=== PATIENT | male | born 1945 | race Caucasian/White ===

== ENCOUNTER → 2016-05-14 | Outpatient (CLI) | payer MEDICARE, OTHER ==
[2016-05-14 12:58] VITALS: BP 132/80; PULSE 85; RESP 16; TEMP 97.8
--- NOTE | 2016-05-14 13:45 | P.PN ---
Subjective This is follow-up visit for this patient with a history of severe and chronic low back pain secondary to lumbar degenerative disc disease, lumbar facet arthropathy, we have done interventional pain management injection, lumbar epidural steroid injection 3, and is currently on pain medications 1-naproxen to 20 mg twice a day when necessary, patient felt excellent pain relief until 2 days ago, he started feeling low back pain with radiation to the posterior aspect of his legs Patient denies any side effects of the medication, denies excessive drowsiness or sleepiness, denies suicidal ideation, and reports that the current pain medication is NOT helping To control the pain and improve activity of daily living Physical Examinations : 1-Constitutiona : Cooperative , not in acute distress . 2-HEENT : nech ; supple , no Lymphadenopathy , no Thyromegaly , normal thyroid size . eyes : no ptosis , no icterus, no photophobia . ENT : normal of hearing , normal oropharynx , no Thrush . 3- Respiratory : Chest clear to auscultations Bilaterally , no wheezing , no Rhonchi . 4- Cardiovascular : regular rate and rhythem , S1 , S2 , no S3 , no S4. 5- Gastrointestinal : abdomen soft no tenderness , bowel sounds positive all four quadrents , no organomegally . 6- Genitourinary : Defferred . 7- neurologic : Cranial nerve II to XII intact , no focal neurological deffecit . 8-psychatric : alert , oriented X 3 , appropriate affect , intact judgment and insight . 9-Lymphatic : no Lymphadenopathy . 10- musculoskeltal : exams of the Lumber spine = motor strength lower extremities ,thigh and legs .5/5 deep tendon reflexes : normal Knee Jerk , normal ankle Jerk . lumber facet Loading Test positive strait leg raising test = negative bilaterally, Fabere test= negative bilaterally Range of motion: Range of motion in flexion of the lumbar spine 90 degrees Range of motion range of motion of extension of the lumbar spine 10 Assessment and plan = - Chronic low back pain secondary to lumbar degenerative disc disease , lumbar spondylosis with facet arthropathy without myelopathy , status post lumbar epidural steroid injections 3 - diagnoses, prognosis, and treatment options including but not limited to physical therapy, surgical interventions, interventional therapies and medication management including narcotics and adjuvant medication were discussed with the patient and all questions answered to the patient's satisfaction. -medication refile = start patient on Neurontin 100 mg 3 times a day, start patient on Ultram 50 mg half a tablet every 6 hours when necessary for breakthrough pain, we'll see the patient in the clinic in 4-6 weeks if he continues to have pain then will consider doing diagnostic medial branch block lumbar area and possibly radiofrequency ablation of the medial branch lumbar area Objective - Vital Signs Vital signs: Vital Signs Temp 97.8 F 05/14/16 12:49 Pulse 85 05/14/16 12:49 Resp 16 05/14/16 12:49 BP 132/80 05/14/16 12:49 Pulse Ox 95 05/14/16 12:49 Intake & Output 05/13/16 05/14/16 05/14/16 18:59 06:59 18:59 Weight 77.111 kg
== END | disposition home or self-care (01) ==
LOC: PNWHC3 11:37
PROVIDERS: ATTEND Specialist
DX: M51.36 Other intervertebral disc degeneration, lumbar region (principal); M47.816 Spondylosis without myelopathy or radiculopathy, lumbar region; M46.96 Unspecified inflammatory spondylopathy, lumbar region; Z79.899 Other long term (current) drug therapy
CPT/HCPCS: 99211

== ENCOUNTER → 2016-06-18 | Outpatient (CLI) | payer MEDICARE, OTHER ==
[2016-06-18 14:17] VITALS: BP 105/61; PULSE 94; RESP 16; TEMP 98.2
--- NOTE | 2016-06-18 14:52 | P.PN ---
Subjective This is follow-up visit for this patient with a history of chronic low back pain with radiation to the lower extremities secondary to lumbar degenerative Disc disease, lumbar spinal stenosis at L5-S1 and L4 5, we have done interventional pain management injection, lumbar epidural steroid injections, x3 , and patient reported he had no benefit from the injections, he reports whenever he does any physical activity, he feels that his lower extremities extremely weak, feels some pain in the thighs and the calf area , and muscle spasm in the lower extremities, he was on Neurontin but it caused some skin rash and he stopped taking it, he is currently on Ultram and he had minimal or no benefit from it, denies any change in the bowel movement or urination Physical Examinations : 1-Constitutiona : Cooperative , not in acute distress . 2-HEENT : nech ; supple , no Lymphadenopathy , no Thyromegaly , normal thyroid size . eyes : no ptosis , no icterus, no photophobia . ENT : normal of hearing , normal oropharynx , no Thrush . 3- Respiratory : Chest clear to auscultations Bilaterally , no wheezing , no Rhonchi . 4- Cardiovascular : regular rate and rhythem , S1 , S2 , no S3 , no S4. 5- Gastrointestinal : abdomen soft no tenderness , bowel sounds positive all four quadrents , no organomegally . 6- Genitourinary : Defferred . 7- neurologic : Cranial nerve II to XII intact , no focal neurological deffecit . 8-psychatric : alert , oriented X 3 , appropriate affect , intact judgment and insight . 9-Lymphatic : no Lymphadenopathy . 10- musculoskeltal : exams of the Lumber spine = motor strength lower extremities ,thigh and legs .5/5 deep tendon reflexes : normal Knee Jerk , normal ankle Jerk . lumber facet Loading Test positive strait leg raising test positive at 60 degree , RT ,LT , Fabere test positive RT and positive LT . Range of motion: Range of motion in flexion of the lumbar spine 60 degrees Range of motion range of motion of extension of the lumbar spine 30 mild tenderness over the Sacroiliac joint on the Right , and Left side Assessment and plan = Low back pain with radiation to the lower extremities secondary to lumbar spinal stenosis , lumbar degenerative disc disease and lumbar facet arthropathy With done lumbar epidural steroid injections 3 , patient had no benefit from it , Patient will be referred to have surgical evaluation for possible interventions/lumbar laminectomy . - diagnoses, prognosis, and treatment options including but not limited to physical therapy, surgical interventions, interventional therapies , and medication management including narcotics and adjuvant medication were discussed with the patient and all The questions answered Objective - Vital Signs Vital signs: Vital Signs Temp 98.2 F 06/18/16 14:07 Pulse 94 06/18/16 14:07 Resp 16 06/18/16 14:07 BP 105/61 06/18/16 14:07 Pulse Ox 93 L 06/18/16 14:07 Intake & Output 06/17/16 06/18/16 06/18/16 18:59 06:59 18:59 Weight 77.111 kg
== END | disposition home or self-care (01) ==
LOC: PNWHC3 13:35
PROVIDERS: ATTEND Specialist
DX: G89.29 Other chronic pain (principal); M51.36 Other intervertebral disc degeneration, lumbar region; M48.06 Spinal stenosis, lumbar region; M46.96 Unspecified inflammatory spondylopathy, lumbar region; M62.838 Other muscle spasm; L27.0 Generalized skin eruption due to drugs and medicaments taken internally; T42.6X5A Adverse effect of other antiepileptic and sedative-hypnotic drugs, initial encounter; Z79.899 Other long term (current) drug therapy
CPT/HCPCS: 99211

== ENCOUNTER → 2016-07-23 | Outpatient (CLI) | payer MEDICARE, OTHER ==
--- NOTE | 2016-07-23 15:00 | XR ---
EXAMINATION TYPE: XR chest 2V DATE OF EXAM: 07/23/2016 8:31 AM COMPARISON: NONE HISTORY: Presurgical TECHNIQUE: Frontal and lateral views of the chest are obtained. FINDINGS: There is no pneumothorax or pleural effusion. Calcified pleural plaques are present. No pn eumonia is evident. Cardiac mediastinal silhouette, pulmonary vascularity and jama are within normal limits. IMPRESSION: Correlate for asbestos related disease.
== END | disposition home or self-care (01) ==
LOC: LABPAT 07:58
PROVIDERS: ATTEND Orthopaedic Surgery Orthopaedic Surgery of the Spine
DX: Z01.812 Encounter for preprocedural laboratory examination (principal); Z01.818 Encounter for other preprocedural examination
CPT/HCPCS: 71020; 87070

== ENCOUNTER → 2016-08-03 | Outpatient (CLI) | payer MEDICARE, OTHER ==
[2016-08-03 10:17] LABS: ALT 40 U/L (21-72); AST 26 U/L (17-59); Alkaline Phosphatase 74 U/L (38-126); Anion Gap 14 mmol/L; Blood Urea Nitrogen 26 mg/dL (9-20); Calcium 10.1 mg/dL (8.4-10.2); Carbon Dioxide 23 mmol/L (22-30); Chloride 105 mmol/L (98-107); Cholesterol 174 mg/dL (<200); Glucose 98 mg/dL (74-99); HDL Cholesterol 49 mg/dL (40-60); Non-African American GFR(MDRD) >60 (>60 ml/min/1.73 sqM); Potassium 4.7 mmol/L (3.5-5.1); Sodium 142 mmol/L (137-145); Total Bilirubin 2.1 mg/dL (0.2-1.3); Total Protein 7.4 g/dL (6.3-8.2); Triglycerides 118 mg/dL (<150)
== END | disposition home or self-care (01) ==
LOC: LABWHC1 07:23
PROVIDERS: ATTEND Internal Medicine
DX: I10 Essential (primary) hypertension (principal); E78.5 Hyperlipidemia, unspecified; N40.1 Benign prostatic hyperplasia with lower urinary tract symptoms; Z12.5 Encounter for screening for malignant neoplasm of prostate
CPT/HCPCS: 80061; 80053; 36415; G0103

== ENCOUNTER → 2016-08-03 | Outpatient (CLI) | payer MEDICARE, OTHER ==
[2016-08-03 07:53] LABS: Aty Lym Flag Slight; CH 31.7; CHCM 33.8; HCT 50.1 % (39.0-53.0); HDW 2.41; HGB 16.4 gm/dL (13.0-17.5); MCH 30.8 pg (25.0-35.0); MCHC 32.7 g/dL (31.0-37.0); MCV 94.2 fL (80.0-100.0); Mean Platelet Volume 7.5; RBC 5.32 m/uL (4.30-5.90); RDW 12.6 % (11.5-15.5); WBC 8.2 k/uL (3.8-10.6); WBC (Perox) 8.18
[2016-08-03 07:54] LABS: Appearance,Urine Clear (Clear); Bilirubin,Urine Negative (Negative); Glucose,Urine (UA) Negative (Negative); Ketones,Urine Negative (Negative); Leukocyte Esterase,Urine Negative (Negative); Nitrite,Urine Negative (Negative); Protein,Urine Negative (Negative); Specific Gravity,Urine 1.019 (1.001-1.035); UA Billing (MACRO vs. MICRO) CHEM; Urobilinogen,Urine <2.0 mg/dL (<2.0)
[2016-08-03 08:05] LABS: Partial Thromboplastin Time 25.7 sec (22.0-30.0); Prothrombin Time 10.3 sec (9.0-12.0)
[2016-08-03 09:17] LABS: Add Differential Manual Differential
[2016-08-03 09:19] LABS: Manual Review Performed; Nucleated Red Blood Cells 0 /100 WBC (0-0); Total Cells Counted 100
== END ==
LOC: LABPAT 07:20
PROVIDERS: ATTEND Orthopaedic Surgery Orthopaedic Surgery of the Spine
DX: Z01.810 Encounter for preprocedural cardiovascular examination (principal); Z01.812 Encounter for preprocedural laboratory examination
CPT/HCPCS: 36415; 80053; 80061; 81003; 85025; 85610; 85730; 86850; 86900; 86901

== ENCOUNTER 2016-08-13 11:08 | Inpatient (IN) | payer MEDICARE, OTHER ==
[2016-08-06 12:37] VITALS: BMI 24.4
[~2016-08-13 11:08] MED LIST: BACITRACIN 50,000 UNIT, POLYMYXIN B 500,000 UNIT in SODIUM CHLORIDE 0.9% IRRIGATIO 1,00... IRRIGATION ONE; DEXAMETHASONE SOD PHOSPHATE 10 MG/ML 1 ML VIAL IV ONE; HYDROmorphone 1 MG/ML 1 ML SYRINGE IVP PRN; LACTATED RINGERS 1,000 ML IV SCH; MIDAZOLAM 2 MG/2 ML VIAL IV PRN; ONDANSETRON 4 MG/2 ML VIAL IVP ONE; ceFAZolin 2 GM in SODIUM CHLORIDE 0.9% 100 ML IVPB ONE
[2016-08-13] MEDS ORDERED: LIDOCAINE 1% 20 ML VIAL (10MG/ML) FOR IV START INTRADERMA ONE (11:45)
[2016-08-13] MEDS ORDERED: ROCURONIUM BROMIDE 10 MG/ML 10 ML VIAL IV ONE (12:37)
[2016-08-13] MEDS ORDERED: PROPOFOL 10 MG/ML 20 ML VIAL IV ONE (12:37)
[2016-08-13] MEDS ORDERED: ePHEDrine 50 MG/ML 1 ML AMP ONE (12:37)
[2016-08-13] MEDS ORDERED: GLYCOPYRROLATE 0.2 MG/ML 2 ML VIAL ONE (12:37)
[2016-08-13] MEDS ORDERED: HEPARIN SODIUM,PORCINE 10,000 UNIT/ML 1 ML VIAL ONE (12:37)
[2016-08-13] MEDS ORDERED: ARTIFICIAL TEARS OINTMENT 3.5 GM TUBE ONE (12:37)
[2016-08-13] MEDS ORDERED: LIDOCAINE 1% INJ 10MG/ML (20 ML MDV) ONE (12:37)
[2016-08-13] MEDS ORDERED: NEOSTIGMINE 1 MG/ML 10 ML VIAL ONE (12:37)
[2016-08-13] MEDS ORDERED: MIDAZOLAM 2 MG/2 ML VIAL ONE (12:37)
[2016-08-13] MEDS ORDERED: PHENYLEPHRINE-0.9% NACL SYG 1 MG/10 ML SYRINGE ONE (12:37)
[2016-08-13] MEDS ORDERED: ONDANSETRON 4 MG/2 ML VIAL ONE (12:37)
[2016-08-13] MEDS ORDERED: ceFAZolin 1,000 MG VIAL ONE (12:37)
[2016-08-13] MEDS ORDERED: fentaNYL (PF) 50 MCG/ML 2 ML AMP ONE (12:37)
[2016-08-13] MEDS ORDERED: SODIUM CHLORIDE 0.9% IRRIG 1,000 ML BTL IRRIGATION ONE (12:37)
[2016-08-13] MEDS ORDERED: HYDROmorphone (PF) 1 MG/ML ONE (12:37)
[2016-08-13] MEDS ORDERED: LIDOCAINE 0.5%-EPI 1:200,000 50 ML VIAL SQ ONE (13:18)
--- NOTE | 2016-08-13 13:52 | XR ---
EXAM TYPE: LUMBAR SPINE X RAY SERIES COMPARISON: NONE HISTORY: Needle placement TECHNIQUE: One view is submitted. FINDINGS: There is a metallic instrument overlying the posterior margin of the lower lumbar segment. There is a nterolisthesis of the within the lower lumbar spine. Vacuum discs are seen at virtually all levels wi th multilevel severe degenerative disc disease. IMPRESSION: 1. Intraoperative needle placement..
[2016-08-13] MEDS ORDERED: THROMBIN (BOVINE) 5,000 UNIT VIAL MISCELLANE ONE (13:56)
[2016-08-13] MEDS ORDERED: GELATIN SPONGE,ABSORB (LARGE) 1 EACH SPONGE MISCELLANE ONE (13:56)
[2016-08-13] MEDS ORDERED: LACTATED RINGERS 1,000 ML IV ONE ×3 (14:09→18:21)
[2016-08-13] MEDS ORDERED: BENZOCAINE/MENTHOL LOZENG 1 EACH LOZENGE MUCOUS MEM PRN (17:20)
[2016-08-13] MEDS ORDERED: HYDROmorphone PCA 5 MG/25 ML SYRINGE IV PRN (17:20)
[2016-08-13] MEDS ORDERED: HYDROcodone/APAP 5-325MG 1 EACH TAB PO PRN (17:20)
[2016-08-13] MEDS ORDERED: HYDROmorphone 1 MG/ML 1 ML SYRINGE IVP PRN (17:20)
[2016-08-13] MEDS ORDERED: ONDANSETRON 4 MG/2 ML VIAL IVP PRN (17:20)
[2016-08-13] MEDS ORDERED: FAMOTIDINE 20 MG TAB PO PRN (17:23)
[2016-08-13] MEDS ORDERED: traMADol 50 MG TAB PO PRN (17:23)
[2016-08-13] MEDS ORDERED: SODIUM CHLORIDE 0.9% 1,000 ML IV SCH (17:30)
--- NOTE | 2016-08-13 17:33 | P.OP ---
Date of Procedure: 08/13/16 Preoperative Diagnosis: Spondylolisthesis L3 4 and L5-S1, severe spinal stenosis L3 4 L4 5 L5-S1, degenerative disc disease L3 4 L4 5 L5-S1, facet arthrosis, spondylolysis, lower extremity radiculopathy, neurogenic claudication Postoperative Diagnosis: Same Anesthesia: GETA Pathology: none sent Condition: stable Disposition: PACU Description of Procedure: BRIEF OPERATIVE NOTE Preoperative Diagnosis: Spondylolisthesis L3 4 and L5-S1, severe spinal stenosis L3 4 L4 5 L5-S1, degenerative disc disease, facet arthrosis, spondylolysis, neurogenic claudication Postoperative Diagnosis: Same Procedure: Laminectomy and decompression with wide bilateral foraminotomy and partial facetectomy L3 4 L4 5 L5-S1 Posterior lateral decompression and fusion L3 4 L4 5 L5-S1 Transforaminal lumbar interbody fusion for a 360 fusion L5-S1 Discectomy for decompression L5-S1 Placement of interbody graft L5-S1 Bone marrow aspiration from the right iliac crest through a separate fascial incision using a bone marrow aspirate device Local autogenous bone grafting Use of Cell Saver Use of bone graft extenders Use of neuro monitoring Surgeon: Dr. Morales Shuttler Car: Erma Theodore, who is present throughout the entire the case persistence during positioning, dissection, exposure, visualization, and all crucial elements of the case as well as closure. Anesthesia: General anesthesia Estimated blood loss: Approximately 1000 mL with 500 mL given back through Cell Saver Complications: None apparent Components implanted: K2M [place] pedicle screw system with 6.5 mm screws to rods one cross-link and 1 Ha[place]raw interbody cage with 10 mL of DBX bone putty to supplemental local autogenous bone graft and bone marrow aspirate, as well as the osteoamp consults punch Disposition: To recovery room in good stable condition. OPERATIVE INDICATIONS The patient has had long-standing issues in their lower back and lower extremities. He is found have severe changes at his lumbar spine including spondylolisthesis with severe spinal stenosis. The patient has been through conservative treatment. He is having worsening pain and debility despite aggressive conservative treatment. We discussed various treatment options including surgery, and the patient wishes to proceed with surgery We discussed the risk, patient's alternatives and benefits of surgery including but not limited to, risk of bleeding risk of infection, risk of need for further surgery , risk of decreased, loss of motion, muscle function, malunion nonunion, hardware failure, nerve damage, paralysis, heart attack, blindness and . OPERATIVE SUMMARY After discussing all the risks, patient alternatives and benefits at length, the patient elected to proceed with surgical intervention, signed informed consent, and presented for their procedure. The patient was seen and examined in the preoperative holding area and the surgical site was marked. The patient was given antibiotics and brought to the operating room. The patient was sedated and intubated by anesthesia in standard fashion. The patient was positioned on to the operating room table in a prone position on the appropriate frame which was well-padded and well molded. We were careful to pad any bony prominences and pressure points. We were careful to maintain the patient's cervical spine and good neutral alignment and position throughout. The patient was prepped and draped in a normal standard fashion. An appropriate timeout and keystone protocol performed. We were able to proceed with the surgery. The local wound area was infiltrated with local anesthetic. An incision was made at the midline longitudinally over the appropriate levels from L3 to S1. Dissection was taken down subcutaneously to the level of the fascia which was split midline. Dissection was taken over the lamina bilaterally over the facet joints and to the transverse processes. Intraoperative x-ray was taken which showed a marker at the appropriate level at L4. With the appropriate level positively confirmed, we were able to proceed with placement of the pedicle holes and screws. The patient had all their twitches back. The wound was copiously irrigated and suctioned dry as had been done periodically throughout the case. Screw holes were established similarly at each level. A sharp awl was used to establish the starting hole. It was palpated and found to have good for peñaloza and good base. A monitored Steffee probe was used to establish the pedicle hole. It was positioned so there was no stimulation at 12 mA. The hole was palpated and found to have good for peñaloza and a good base. The hole was tapped with the appropriate sized tap. The transverse process or sacral ala was decorticated with a high-speed bur. I was able to use these holes to place the appropriate size screw and good alignment and good position with good bony purchase. When the screws were inserted there were stimulated, and found to have no stimulation at 10 mA. I was able to turn my attention to the decompression. decompression was performed with a combination of rongeurs, curettes, Kerrison rongeurs and a ball -tip feeler. There is severe changes particularly at L5-S1 with the risk great deal of overgrowth and osteophytic spurring around the facet joints and over the spondylolysis. All of the bone that was removed was stripped and morcellized for use as autogenous bone graft later in the case. I was able to obtain good central decompression as well as wide bilateral foraminal decompression. At L5-S1 on the left there is significant osteophyte formation and there is distortion of the thecal sac. Upon removing some of the osteophytes there was a small dural abrasion. It did not go all the way through the dura but there was some small bubbling at the dura itself. I placed Tisseel over this area at the end of the case and there was no evidence of any leakage or leaking of the CSF fluid. Good hemostasis was maintained. The wound was irrigated and suctioned dry. I then turned my attention to the right iliac crest where I made a separate fascial approach into the iliac crest with a bone marrow aspirate device was able inserted into the iliac crest and aspirate approximately 2 mL of bone marrow aspirate which was placed over the osteal amp cancellous bone sponge and autogenous bone graft. I performed a complete facetectomy at the appropriate level on the most symptomatic side on the left at L5-S1. All bone that was removed was saved for local autogenous bone grafting. I was able to gain access to the disc space at the appropriate level/levels. Good hemostasis was maintained. I was able to protect the neurologic structures. The disc was showing obvious protrusion causing further distortion of the traversing nerve root. A discectomy was performed. This provided further decompression. I was also able to perform complete discectomy and endplate preparation with a combination of pituitary curettes, rasps and scrapers. With the interbody space prepared, I was able to do appropriate sizing. The appropriate size cage was chosen. The wound was irrigated and suctioned dry. The interbody space was packed with local autogenous bone graft and a small portion of bone graft substitute, as was the cage itself. Protecting the soft tissue structures, I was able place the cage in good alignment and good position with good fit and fill. There is no evidence of extrusion of the graft material nor protrusion of the interbody device. The wound was irrigated and suctioned dry. With the hardware intact, intraoperative x-ray was again taken which showed good alignment and position of the hardware at the appropriate levels from L3 to S1. We were then able to measure, contour and place the rods and appropriate hardware bilaterally. I was able to place capcrews, tighten them down, and shear them off appropriately. The sheared portion was counted and accounted for. With this intact I was able to place the local otitis bone graft with additional bone graft enhancer as necessary into the posterior lateral gutters bilaterally. With the bone graft intact, a stable construct, and good decompression at the appropriate levels, we were able to proceed with closure. Good hemostasis was maintained. There is no evidence of dural tear or leak. The fascia was closed for a watertight closure. The subcutaneous tissue was closed over a superficial drain. The subcuticular tissue was closed with absorbable suture. The wound was cleaned and dried and dressed with the appropriate dressing. The drapes were broken down. The patient was gently rolled back onto their hospital bed being careful to maintain their cervical spine and good neutral alignment and position. They were woken up by anesthesia , extubated, and brought to the recovery room in good stable condition. The patient will be admitted to the hospital for appropriate postoperative care , medical management and monitoring. We will continue to follow them closely about the postoperative course.
[2016-08-13] MEDS ORDERED: LORazepam 2 MG/ML SYRINGE IV ONE (17:35)
[2016-08-13] MEDS ORDERED: HYDROmorphone 1 MG/ML 1 ML SYRINGE IVP ONE (17:45)
[2016-08-13] MEDS ORDERED: CLINDAMYCIN 900 MG in DEXTROSE 5% IN WATER 50 ML IVPB SCH ×2 (18:00)
[2016-08-13 18:32] LABS: Basophils # (A) 0.1 k/uL (0-0.2); Basophils % (A) 1 %; CH 31.3; CHCM 32.5; Eosinophils % (A) 0 %; HCT 36.8 % (39.0-53.0); HDW 2.27; Luc # (Auto) 0.23; Luc % (Auto) 2; Lymphocytes # (A) 1.2 k/uL (1.0-4.8); Lymphocytes % (A) 10 %; MCH 31.6 pg (25.0-35.0); MCHC 32.7 g/dL (31.0-37.0); MCV 96.6 fL (80.0-100.0); Mean Platelet Volume 6.9; Monocytes # (A) 0.8 k/uL (0-1.0); Monocytes % (A) 7 %; Neutrophils # (A) 10.1 k/uL (1.3-7.7); Neutrophils % (A) 81 %; RBC 3.81 m/uL (4.30-5.90); RDW 13.1 % (11.5-15.5); WBC 12.5 k/uL (3.8-10.6); WBC (Perox) 12.89
[2016-08-13] MEDS ORDERED: SODIUM CHLORIDE 0.9% 1,000 ML with POTASSIUM CHLORIDE 20 MEQ, MVI, ADULT NO.4 WITH VIT ... IV SCH ×5 (19:15)
[2016-08-13] MEDS ORDERED: LORazepam 2 MG/ML SYRINGE IV PRN (19:17)
[2016-08-13] MEDS: HYDROmorphone 1 MG/ML 1 ML SYRINGE IVP PRN (19:22)
[2016-08-13] MEDS: ceFAZolin 2 GM in SODIUM CHLORIDE 0.9% 100 ML IVPB SCH (19:24)
[2016-08-13 19:56] LABS: Appearance,Urine Cloudy (Clear); Bacteria,Urine Rare /hpf; Bilirubin,Urine Negative (Negative); Glucose,Urine (UA) Negative (Negative); Ketones,Urine Negative (Negative); Leukocyte Esterase,Urine Moderate (Negative); Mucus,Urine Rare /hpf; Nitrite,Urine Negative (Negative); Particle Count 19202; Protein,Urine 1+ (Negative); RBC,Urine 35 /hpf (0-5); Specific Gravity,Urine 1.015 (1.001-1.035); UA Billing (MACRO vs. MICRO) MICRO; Urobilinogen,Urine <2.0 mg/dL (<2.0); WBC,Urine 28 /hpf (0-5)
[2016-08-13 19:59] LABS: ALT 32 U/L (21-72); AST 29 U/L (17-59); Alkaline Phosphatase 42 U/L (38-126); Anion Gap 9 mmol/L; Blood Urea Nitrogen 22 mg/dL (9-20); Calcium 8.6 mg/dL (8.4-10.2); Carbon Dioxide 24 mmol/L (22-30); Chloride 108 mmol/L (98-107); Glucose 122 mg/dL (74-99); Magnesium 1.6 mg/dL (1.6-2.3); Non-African American GFR(MDRD) 60 (>60 ml/min/1.73 sqM); Potassium 4.6 mmol/L (3.5-5.1); Sodium 141 mmol/L (137-145)
[2016-08-13] MEDS: HYDROmorphone PCA 5 MG/25 ML SYRINGE IV PRN (21:00)
[2016-08-14] MEDS: ceFAZolin 2 GM in SODIUM CHLORIDE 0.9% 100 ML IVPB SCH (04:47)
[2016-08-14] MEDS: HYDROmorphone PCA 5 MG/25 ML SYRINGE IV PRN ×2 (05:39→13:03)
--- NOTE | 2016-08-14 07:50 | P.PN ---
Progress Note - Text Postoperative day #1 Patient is seen and examined today at bedside. The patient has some pain around the surgical site as expected. Pain is being controlled with medication.he is flat on his back. He is not complaining of any headaches. He is not having any nausea or vomiting. Denies any shortness of breath. Physical Exam Afebrile with stable vital signs. His Gibbons is intact. Abdomen is soft nontender. Chest has good excursion deep and space expiration The incision site is clean dry and intact. No erythema there is no purulence.the drain is intact with minimal drainage Extremities have not had neurologic change from prior to surgery. he has sustained dorsal flexion plantar flexion and extensor hallucis longus Calves and thighs were soft nontender without evidence of DVT. Assessment/Plan Postoperative day #1 status post decompression and fusion L3 4 L4 5 and L5-S1 for his severe spinal stenosis and spondylolisthesis. Patient is progressing as expected from the surgery. he did have a small dural abrasion during his surgery and I would like to keep him flat in bed today as this heals. He is not having any evidence of any spinal headaches but we will hold off on starting therapy or putting him in many upright position until tomorrow after lunch. We will continue to increase the patient's mobilization with therapy starting on Saturday after lunch so that we can keep him flat in bed today. it is okay for him to lay on his side or on his back. With his continued bedrest is okay for him to keep his Gibbons catheter intact. We will continue pain control with oral or IV medications. We'll continue to follow patient closely. hopefully will be able to start him sitting up and with his mobilization.
--- NOTE | 2016-08-14 08:11 | CONS ---
DATE OF CONSULTATION: REASON FOR CONSULTATION: Advice regarding hypertension and multiple medical issues requested by Dr. Flood. HISTORY OF PRESENT ILLNESS: This 70-year-old gentleman with past medical history of hypertension, hyperlipidemia, history of degenerative joint disease, history of pneumonia, history of gastroesophageal reflux disease, being followed by Dr. Sanchez in the outpatient setting underwent laminectomy and decompression with a wide bilateral foraminotomy and partial facetectomy L3-4, L4-5, L5-S1 for spondylosis L3-4, L5-S1 and severe spinal stenosis L3-4, L4-5, L5-S1 and severe degenerative joint disease. Postoperatively patient was mildly confused. Patient received some Ativan postoperatively. Currently, the patient is unable to give a coherent history. Most of the history is from my discussion with staff and review of the chart at this time. There is no history of fever, rigor, chills. No history of headache, loss of consciousness, seizures. PAST MEDICAL HISTORY: History of GERD, hypertension, hyperlipidemia, history DJD, history of pneumonia, history of cardiac murmur. Medications prior to admission include home medications: Ultram 50 mg b.i.d. p.r.n., Tylenol 650 p.r.n., Lipitor 10 mg p.o. daily, aspirin 81 mg daily, Prinivil 20 mg p.o. daily, multivitamin 1 p.o. daily, Ranitidine 150 mg p.o. daily p.r.n., Aleve 220 mcg b.i.d. p.r.n., vitamin E 400 units daily. ALLERGIES: GABAPENTIN, PENICILLIN AND SULFA. FAMILY HISTORY: History of lung and pancreas cancer in the family. SOCIAL HISTORY: Previous history of smoking, occasional alcohol per chart. Review of systems could not be taken because the patient is mildly confused. PHYSICAL EXAMINATION: Pulse is 89, blood pressure 105/59, respirations 18, temperature 97.2, pulse ox 100% on nasal cannula. HEENT: Conjunctivae normal. Oral mucosa moist. NECK: No jugular venous distention. No carotid bruit. No lymph node enlargement. CARDIOVASCULAR: S1 and S2, muffled. No S3, no S4. RESPIRATORY: Breath sounds diminished at the bases. No rhonchi, no crackles. ABDOMEN: Soft, nontender. No mass palpable. LEGS: No edema, no swelling. NERVOUS SYSTEM: Higher function as mentioned. Moves all four limbs. No focal motor deficits. LYMPHATIC: No lymphadenopathy in the neck, axillae or groin. SKIN: No ulcer, rash or bleeding. LABS: WBC 12.5, hemoglobin is 12, platelets 148. ASSESSMENT: 1. Status post laminectomy and decompression and wide foraminotomy with partial facetectomy L3-4, L4-5, L5-S1 for spondylolisthesis and severe spinal stenosis and degenerative joint disease. 2. Change in mental status, possibly metabolic encephalopathy. 3. Increased WBC. 4. Anemia. 5. Rule out delirium tremens. 6. Mild thrombocytopenia. 7. History of hypertension. 8. History of hyperlipidemia. 9. History of gastroesophageal reflux disease. 10. History of degenerative joint disease. 11. History of pneumonia. 12. History of cardiac murmur. 13. History of elevated bilirubin levels. 14. History of asbestosis in the chest x-ray previously. 16. History of appendectomy. 17. History of degenerative joint disease. 18. History of motion sickness. 19. Remote history of nicotine dependence. 20. FULL CODE. RECOMMENDATIONS AND DISCUSSION: In this 70-year-old gentleman who presented with multiple complex medical issues, we will monitor the patient closely. Continue the current medications and continue the symptomatic treatment. I recommend DVT prophylaxis and continue to monitor. Otherwise I also recommended Ativan p.r.n. and DT precautions and as well as IV fluids with vitamin supplementation. Other than that, we will follow the patient closely with you. See orders for further details. Baseline labs and x-rays also may be obtained. Home medications may be resumed. The patient may be asked to follow with Dr. Sanchez closely after discharge. Thank you Dr. Morales for letting us participate in the care of this patient. [facility]
[2016-08-14 08:37] LABS: Anion Gap 10 mmol/L; Blood Urea Nitrogen 23 mg/dL (9-20); Calcium 8.8 mg/dL (8.4-10.2); Carbon Dioxide 27 mmol/L (22-30); Chloride 103 mmol/L (98-107); Glucose 118 mg/dL (74-99); Non-African American GFR(MDRD) >60 (>60 ml/min/1.73 sqM); Potassium 4.7 mmol/L (3.5-5.1); Sodium 140 mmol/L (137-145)
[2016-08-14 08:39] LABS: Basophils % (A) 0 %; CH 31.2; CHCM 32.8; Eosinophils % (A) 0 %; HCT 37.7 % (39.0-53.0); HDW 2.34; HGB 12.5 gm/dL (13.0-17.5); Luc # (Auto) 0.23; Luc % (Auto) 2; Lymphocytes # (A) 0.7 k/uL (1.0-4.8); Lymphocytes % (A) 7 %; MCH 31.8 pg (25.0-35.0); MCHC 33.2 g/dL (31.0-37.0); MCV 95.7 fL (80.0-100.0); Mean Platelet Volume 7.2; Monocytes # (A) 0.8 k/uL (0-1.0); Monocytes % (A) 8 %; Neutrophils # (A) 8.2 k/uL (1.3-7.7); Neutrophils % (A) 83 %; RBC 3.94 m/uL (4.30-5.90); RDW 13.1 % (11.5-15.5); WBC 9.9 k/uL (3.8-10.6); WBC (Perox) 10.56
[2016-08-14] MEDS: LISINOPRIL 20 MG TAB PO SCH (08:47)
[2016-08-14] MEDS: ASPIRIN 81 MG CHEW PO SCH (08:47)
[2016-08-14] MEDS: PANTOPRAZOLE 40 MG/10 ML VIAL IVP SCH (08:47)
[2016-08-14] MEDS: VITAMIN E (DL,TOCOPHERYL ACET) 400 UNIT CAP PO SCH ×2 (08:48→08:57)
[2016-08-14] MEDS ORDERED: SODIUM CHLORIDE 0.65% NASAL SPRAY 44 ML BTL NASAL PRN (09:57)
--- NOTE | 2016-08-14 10:36 | XR ---
EXAMINATION TYPE: XR chest 1V portable DATE OF EXAM: 08/14/2016 6:45 AM COMPARISON: Prior chest x-ray 23 July 2016 HISTORY: Congestive heart failure TECHNIQUE: Single frontal view of the chest is obtained. FINDINGS: Calcified pleural plaques suspected in the left chest laterally. Lung volumes are low. No evident pneumothorax. Patchy increased density present at the lung bases. Right hemidiaphragm is elev ated. Heart is enlarged. Interstitium is increased. IMPRESSION: Low lung volumes. There may be asbestos related disease. Elevated right hemidiaphragm, p robable basilar atelectasis, correlate to exclude pneumonia. Follow-up suggested.
--- NOTE | 2016-08-14 10:40 | XR ---
Lumbar spine HISTORY: Hardware placement, lumbar fusion 2 views of the lumbar spine correlated to prior dated 13 August 2016 Transpedicular screws have been placed L2, L3, L4 and L5. Intervertebral spacing material present at L4-5. Alignment is stable. Multilevel spondylosis is present, vacuum phenomenon present at the interv ertebral levels. IMPRESSION: Orthopedic localization
[2016-08-14] MEDS: ATORVASTATIN 10 MG TAB PO SCH (10:46)
[2016-08-14] MEDS: MULTIVITAMINS, THERA 1 EACH TAB PO SCH (11:12)
[2016-08-14] MEDS: LEVOFLOXACIN 500MG-D5W PMX 500 MG in DEXTROSE/WATER 1 100ML.BAG IVPB SCH (12:31)
--- NOTE | 2016-08-14 21:56 | PN ---
DATE OF SERVICE: 08/14/2016 This 70-year-old gentleman admitted after spinal surgery is improving significantly. Last night the patient had restlessness and confusion. Currently, patient is much more alert and clear. The patient has elevated white count and abnormal urine also. No chest pain or palpitation. No fever. On exam, pulse is 92. Blood pressure 120/58. Respiratory 16, temperature 98 degrees, pulse ox 94% on room air. HEENT: Conjunctivae normal. NECK: No jugular venous distention. CARDIOVASCULAR: S1, S2 muffled. RESPIRATORY: Breath sounds diminished at the bases. No rhonchi, no crackles. ABDOMEN: Soft, mildly obese. Legs no edema. No swelling. BACK: Status post surgery. LABS: WBC 9.2, hemoglobin 12.5. UA noted. Cultures are pending. ASSESSMENT: 1. Status post laminectomy and decompression, and wide foraminotomy with partial facetectomy L3-4, L4-5 and L5-S1 for spondylolisthesis and severe spinal stenosis with degenerative joint disease. 2. Change in mental status, possibly acute metabolic encephalopathy. 3. Increased WBC. 4. Urinary tract infection, present on admission. 5. Anemia. 6. Mild thrombocytopenia. 7. History of hypertension. 8. History of hyperlipidemia. 9. History of gastroesophageal reflux disease. 10. History of degenerative joint disease. 11. History of pneumonia. 12. History of cardiac murmur. 13. Increased elevated bilirubin levels. 14. History of asbestosis and chest x-ray previously. 15. History of appendectomy. 16. History of degenerative joint disease. 17. History of motion sickness. 18. Remote history nicotine dependence. 19. FULL CODE. RECOMMENDATIONS AND DISCUSSION: In this 70-year-old gentleman who presented with multiple complex medical issues. We will monitor the patient closely. Otherwise, I would recommend continue IV antibiotics. Repeat the labs. DVT prophylaxis. Monitor closely. Closely follow with Dr. Morales. Further recommendations to follow.
[2016-08-15] MEDS: HYDROmorphone PCA 5 MG/25 ML SYRINGE IV PRN (01:38)
[2016-08-15] MEDS: HYDROmorphone 1 MG/ML 1 ML SYRINGE IVP PRN (05:12)
[2016-08-15 08:18] LABS: Basophils % (A) 0 %; CH 31.3; CHCM 34.1; Eosinophils % (A) 0 %; HGB 11.9 gm/dL (13.0-17.5); Luc # (Auto) 0.39; Luc % (Auto) 3; Lymphocytes # (A) 0.6 k/uL (1.0-4.8); Lymphocytes % (A) 4 %; MCH 32.1 pg (25.0-35.0); MCHC 34.8 g/dL (31.0-37.0); MCV 92.1 fL (80.0-100.0); Mean Platelet Volume 7.2; Monocytes # (A) 0.9 k/uL (0-1.0); Monocytes % (A) 6 %; Neutrophils # (A) 13.7 k/uL (1.3-7.7); Neutrophils % (A) 87 %; RBC 3.69 m/uL (4.30-5.90); RDW 12.5 % (11.5-15.5); WBC 15.7 k/uL (3.8-10.6); WBC (Perox) 16.42
[2016-08-15] MEDS: HYDROcodone/APAP 5-325MG 1 EACH TAB PO PRN ×2 (08:39→21:27)
--- NOTE | 2016-08-15 09:59 | P.PN ---
Progress Note - Text Postoperative day #2 Patient is seen and examined today at bedside. The patient has some pain around the surgical site as expected. He has been flat in bed and is not having any evidence of spinal headaches. Pain is being controlled with medication. He feels he has some abdominal bloating but is passing some gas. He is not having shortness of breath but he does not feel he is able to breathe deeply. Physical Exam Afebrile with stable vital signs Abdomen is soft nontender. Chest has good excursion deep and space expiration The incision site is clean dry and intact. No erythema there is no purulence. The drain is intact with minimal drainage Extremities have not had neurologic change from prior to surgery. He has sustained dorsal flexion plantarflexion and extensor hallucis longus Calves and thighs were soft nontender without evidence of DVT. His abdomen is distended but is nontender. Assessment/Plan Postoperative day #2 status post decompression and fusion L3 4 L4 5 and L5-S1 for his spinal stenosis and spondylolisthesis. Patient is progressing somewhat slowly from the surgery thus far due to his need for strict bedrest. We will be able to start having him sit up today and hopefully start his activity if he is not having any evidence of spinal headaches. If he is having significant spinal headaches we will need to have him flat with bedrest again. If he is able to sit up without any evidence of headaches then we can continue to increase the patient's mobilization with therapy. Hopefully as he starts to mobilize it will improve his respiratory status as well as his GI status. He is passing gas and we'll see how he does to hopefully diminish his abdominal distention. We ordered an incentive spirometer so that he can start doing better deep breathing and improve his atelectasis. Case management will see him for post hospitalization preparation and possible equipment needs likely for home versus possibly [facility]p. We will continue pain control with oral or IV medications. We'll continue to follow patient closely along with the medicine service.
[2016-08-15] MEDS: LISINOPRIL 20 MG TAB PO SCH (10:26)
[2016-08-15] MEDS: VITAMIN E (DL,TOCOPHERYL ACET) 400 UNIT CAP PO SCH (10:26)
[2016-08-15] MEDS: PANTOPRAZOLE 40 MG/10 ML VIAL IVP SCH (10:26)
[2016-08-15] MEDS: ATORVASTATIN 10 MG TAB PO SCH (10:27)
[2016-08-15] MEDS: ASPIRIN 81 MG CHEW PO SCH (10:27)
[2016-08-15] MEDS: MULTIVITAMINS, THERA 1 EACH TAB PO SCH (10:28)
[2016-08-15] MEDS: LEVOFLOXACIN 500MG-D5W PMX 500 MG in DEXTROSE/WATER 1 100ML.BAG IVPB SCH (13:10)
[2016-08-15] MEDS: LORATADINE 10 MG TAB PO SCH (13:56)
[2016-08-15] MEDS ORDERED: IPRATROPIUM-ALBUTEROL 3 ML NEB INHALATION PRN (14:33)
--- NOTE | 2016-08-15 15:01 | P.PN ---
Subjective Date of service 08/15/2016. Progress note being dictated for Dr. Mccullough. Interval history: This a 70-year-old gentleman status post laminectomy and decompression, and multiple other medical issues. No spinal headaches lying flat, orthopedics has ordered for patient to be set up at lunch. Pain controlled. Complaining of spasms, receiving Valium as per orthopedics. No bowel movement, positive flatus. Complains of congestion, denies shortness of breath, O2 sat of 92-93% on 3 L nasal cannula(history of ex-smoker, quit in 1982 ). Low-grade fevers, T-max 99.4, WBC 15.7. urine culture pending. Maintained on Levaquin. Denies chest pain, palpitations. Objective - Vital Signs Vital signs: Vital Signs Temp 99.4 F 08/15/16 07:00 Pulse 75 08/15/16 07:00 Resp 20 08/15/16 07:00 BP 131/71 08/15/16 07:00 Pulse Ox 93 L 08/15/16 07:00 Intake & Output 08/14/16 08/15/16 08/15/16 18:59 06:59 18:59 Intake Total 2116.2 900 Output Total 10 665 Balance 2106.2 235 Intake: IV 900 0.9% NaCl with KCl 20 Meq 900 /l 1,000 ml @ 75 mls/hr IV .BY DURATION JERED Rx#: [id number] Intake, IV Titration 1636.2 Amount 0.9% NaCl with KCl 20 Meq 525 /l 1,000 ml @ 75 mls/hr IV .BY DURATION JERED Rx#: [id number] Levofloxacin 500Mg-D5w 100 Pmx 500 mg In Dextrose/ Water 1 100ml.bag @ 100 mls/hr IVPB Q24H JERED Rx#: [id number] Mvi, Adult No.4 with Vit 1011.2 K 10 ml Thiamine 100 mg Folic Acid 1 mg In 0.9% NaCl with KCl 20 Meq/l 1, 000 ml @ 75 mls/hr IV .BY DURATION JERED Rx#: [id number] Oral 480 Output: Drainage 10 15 Posterior Back 10 15 Urine 650 Uretheral (Gibbons) 650 Other: Voiding Method Indwelling Catheter Indwelling Catheter Indwelling Catheter - Exam PHYSICAL EXAM: VITAL SIGNS: As above GENERAL: [Lying in bed, no acute distress] HEENT: [Pupils equal conjunctiva normal. Oral mucosa moist] NECK: [Supple, no JVD] RESPIRATORY EFFORT:[Normal] LUNGS: [Bilateral bases diminished, fine expiratory wheezing crackles, no rhonchi] CARDIOVASCULAR[regular S1-S2, no edema] GI: [Abdomen soft, nontender, positive bowel sounds.] PSYCH: [Alert and oriented -3, mood and affect normal.] NEURO: No focal deficits, currently on bedrest. Microbiology 08/14/16 15:00 Urine,Catheterized Urine Culture - Preliminary - Labs CBC & Chem 7: 08/15/16 07:51 08/14/16 07:48 Labs: Abnormal Lab Results - Last 24 Hours (Table) 08/15/16 Range/Units 07:51 WBC 15.7 H (3.8-10.6) k/uL RBC 3.69 L (4.30-5.90) m/uL Hgb 11.9 L (13.0-17.5) gm/dL Hct 34.0 L (39.0-53.0) % Plt Count 115 L (150-450) k/uL Neutrophils # 13.7 H (1.3-7.7) k/uL Lymphocytes # 0.6 L (1.0-4.8) k/uL Microbiology - Last 24 Hours (Table) 08/14/16 15:00 Urine Culture - Preliminary Urine,Catheterized Assessment and Plan Plan: 1. Status post laminectomy, decompression, wide foraminotomy with partial facetectomy L 3-4, L4-5 and L5-S1 for spondylolisthesis, severe spinal stenosis with degenerative joint disease 2. Change in mental status, possible acute metabolic encephalopathy, suspect medication induced, improved. 3. Leukocytosis]. 4. Possible acute UTI, present on admission, culture pending]. 5. Anemia]. 6. [Mild thrombocytopenia. 7. [Hypertension]. 8. Hyperlipidemia 10. Gastroesophageal reflux disease 11. Asbestosis 12. Motion sickness 13. Remote history of nicotine dependence, quit in 1982. Plan: Continue on current medication regime ,monitoring and symptomatic treatment. Aggressive pulmonary toileting with IS. Portable chest x-ray follow- up, nebulized bronchodilators, Symbicort ordered, Claritin ordered. Maintain Levaquin IV. Pain management as per surgery. Further recommendations to follow. The impression and plan of care has been dictated as directed. : I performed a H&P examination of this patient and discussed the same with the dictator. I agree with the dictator's note. Any additional findings/opinions/ etc. will be noted.
--- NOTE | 2016-08-15 15:45 | XR ---
EXAMINATION TYPE: XR chest 1V portable DATE OF EXAM: 08/15/2016 3:41 PM COMPARISON: 08/14/2016 HISTORY: Shortness of breath TECHNIQUE: Single frontal view of the chest is obtained. FINDINGS: Bilateral infiltrate and small effusion. No pneumothorax. Arthropathy of the shoulders. Ma rkedly dilated bowel loops in the upper abdomen. Catheter or tubing overlying the right upper quadran t correlate clinically. IMPRESSION: 1. Bilateral infiltrate and small effusion. 2. Markedly dilated bowel loops in the abdomen with air-fluid levels. Correlate with dedicated abdomi nal series or CAT scan. Underlying obstruction or ileus in the differential.
[2016-08-15] MEDS: IPRATROPIUM-ALBUTEROL 3 ML NEB INHALATION SCH ×2 (16:37→21:24)
[2016-08-15] MEDS ORDERED: guaiFENesin 600 MG TABLET.ER PO SCH (21:00)
[2016-08-15] MEDS: SYMBICORT 160-4.5 MCG INHALER INHALATION SCH (21:24)
[2016-08-16] MEDS: DIAZEPAM 5 MG TAB PO PRN ×2 (00:41→14:49)
[2016-08-16] MEDS ORDERED: EPINEPHrine 10 ML SYRINGE (0.1 MG/ML) ONE (05:40)
[2016-08-16] MEDS ORDERED: PANTOPRAZOLE 40 MG TABLET PO SCH (07:30)
[2016-08-16 08:12] LABS: Basophils % (A) 0 %; CH 31.7; CHCM 33.3; Eosinophils % (A) 0 %; HCT 35.1 % (39.0-53.0); HDW 2.41; HGB 11.5 gm/dL (13.0-17.5); Luc # (Auto) 0.52; Luc % (Auto) 3; Lymphocytes # (A) 0.7 k/uL (1.0-4.8); Lymphocytes % (A) 4 %; MCH 31.3 pg (25.0-35.0); MCHC 32.8 g/dL (31.0-37.0); MCV 95.4 fL (80.0-100.0); Mean Platelet Volume 7.4; Monocytes # (A) 1.1 k/uL (0-1.0); Monocytes % (A) 6 %; Neutrophils # (A) 14.5 k/uL (1.3-7.7); Neutrophils % (A) 86 %; RBC 3.68 m/uL (4.30-5.90); WBC 16.8 k/uL (3.8-10.6); WBC (Perox) 18.05
[2016-08-16 08:38] LABS: Anion Gap 10 mmol/L; Blood Urea Nitrogen 28 mg/dL (9-20); Calcium 9.1 mg/dL (8.4-10.2); Carbon Dioxide 27 mmol/L (22-30); Chloride 95 mmol/L (98-107); Glucose 123 mg/dL (74-99); Non-African American GFR(MDRD) >60 (>60 ml/min/1.73 sqM); Potassium 4.3 mmol/L (3.5-5.1); Sodium 132 mmol/L (137-145)
[2016-08-16] MEDS: IPRATROPIUM-ALBUTEROL 3 ML NEB INHALATION SCH ×4 (08:48→19:39)
[2016-08-16] MEDS: SYMBICORT 160-4.5 MCG INHALER INHALATION SCH ×2 (08:48→19:39)
[2016-08-16] MEDS: LORATADINE 10 MG TAB PO SCH (09:06)
[2016-08-16] MEDS: ASPIRIN 81 MG CHEW PO SCH (09:06)
[2016-08-16] MEDS: ATORVASTATIN 10 MG TAB PO SCH (09:06)
[2016-08-16] MEDS: LISINOPRIL 20 MG TAB PO SCH (09:06)
[2016-08-16] MEDS: VITAMIN E (DL,TOCOPHERYL ACET) 400 UNIT CAP PO SCH (09:06)
[2016-08-16] MEDS ORDERED: BISACODYL 10 MG SUPP RECTAL STA (10:37)
[2016-08-16] MEDS ORDERED: MAGNESIUM HYDROXIDE 2,400 MG/10 ML CUP PO PRN (10:38)
--- NOTE | 2016-08-16 10:43 | P.PN ---
Progress Note - Text Postoperative day #3 Patient is seen and examined today at bedside. The patient has some pain around the surgical site as expected but his pain control with oral medications. Pain is being controlled with medication. He was able to sit up and stand yesterday and today. He has been up out of bed with physical therapy. He is not complaining of any headaches. He is not having any positional headaches or evidence of spinal headache. He has significant abdominal distention but is passing some gas. He has not and had a bowel movement. He is not having any nausea or vomiting. Physical Exam Afebrile with stable vital signs Abdomen is soft nontender. Abdomen has significant distention but is nontender. Chest has good excursion deep and space expiration he is requiring some supplemental oxygen through nasal cannula The incision site is clean dry and intact. No erythema there is no purulence. His back appears clear Extremities have not had neurologic change from prior to surgery. He is good strength of his bilateral lower extremities Calves and thighs were soft nontender without evidence of DVT. Assessment/Plan Postoperative day #3 status post decompression and fusion L3 through 4 L4 5 L5- S1 for spondylolisthesis and severe spinal stenosis Patient is progressing appropriately from the surgery thus far that he is having some abdominal distention and requirement for supplemental oxygen. He is not having any evidence of spinal headaches and I do not think that he has any persistent CSF leak. It is okay for him to increase his mobilization. With his increased mobility I think that will help his abdomen start to clear. We will start getting him suppository and local Mac today to try to get his bowels going. Hopefully this will allow him to mobilize better and improve his respiratory status is well so that we can discontinue the supplemental oxygen. We will continue to increase the patient's mobilization with therapy. We discussed the possibility of alf facility post discharge but he is hopeful to be able go home in the next couple of days. I discussed this with him and his at bedside as well as the nursing staff. We will continue pain control with oral or IV medications. We'll continue to follow patient closely.
[2016-08-16] MEDS: HYDROcodone/APAP 5-325MG 1 EACH TAB PO PRN (11:30)
[2016-08-16] MEDS: LEVOFLOXACIN 500MG-D5W PMX 500 MG in DEXTROSE/WATER 1 100ML.BAG IVPB SCH (12:41)
[2016-08-16] MEDS: MULTIVITAMINS, THERA 1 EACH TAB PO SCH (14:49)
[2016-08-16] MEDS ORDERED: NA PHOS,M-B/NA PHOS,DI-BA 133 ML ENEMA RECTAL STA (14:51)
[2016-08-16] MEDS ORDERED: LACTULOSE 20 GM/30 ML CUP PO SCH (16:00)
--- NOTE | 2016-08-16 16:57 | P.PN ---
Subjective Date of service 08/16/2016. Progress note being dictated for Dr. Mccullough. Interval history: This a 70-year-old gentleman status post laminectomy and decompression, and multiple other medical issues. Last night developed confusion, hallucinating, seeing things on the ceiling. Confusion subsided this am. Ambulating to door, up in chair with physical therapy, no headache, no lightheadedness, no dizziness. Constipated, distended abdomen. X-ray reporting atelectasis, gas. No bowel movement, positive flatus. Denies nausea, vomiting. Final urine culture negative. Mild tachycardia, currently complains of pain post ambulating. Sodium 132. Denies chest pain, palpitations. Objective - Vital Signs Vital signs: Vital Signs Temp 98.1 F 08/16/16 15:00 Pulse 122 H 08/16/16 15:00 Resp 24 08/16/16 15:00 BP 160/81 08/16/16 15:00 Pulse Ox 95 08/16/16 15:00 Intake & Output 08/15/16 08/16/16 08/16/16 18:59 06:59 18:59 Intake Total 625 1911.2 600 Output Total 250 223 Balance 625 1661.2 377 Intake: IV 900 600 0.9% NaCl with KCl 20 Meq 600 /l 1,000 ml @ 75 mls/hr IV .BY DURATION JERED Rx#: [id number] Mvi, Adult No.4 with Vit 300 600 K 10 ml Thiamine 100 mg Folic Acid 1 mg In 0.9% NaCl with KCl 20 Meq/l 1, 000 ml @ 75 mls/hr IV .BY DURATION JERED Rx#: [id number] Intake, IV Titration 625 1011.2 Amount 0.9% NaCl with KCl 20 Meq 525 /l 1,000 ml @ 75 mls/hr IV .BY DURATION JERED Rx#: [id number] Levofloxacin 500Mg-D5w 100 Pmx 500 mg In Dextrose/ Water 1 100ml.bag @ 100 mls/hr IVPB Q24H JERED Rx#: [id number] Mvi, Adult No.4 with Vit 1011.2 K 10 ml Thiamine 100 mg Folic Acid 1 mg In 0.9% NaCl with KCl 20 Meq/l 1, 000 ml @ 75 mls/hr IV .BY DURATION JERED Rx#: [id number] Output: Urine 250 Post Void Residual 223 Other: Voiding Method Indwelling Catheter Urinal Urinal - Exam PHYSICAL EXAM: VITAL SIGNS: As above GENERAL: [Lying in bed, no acute distress] HEENT: [Pupils equal conjunctiva normal. Oral mucosa moist] NECK: [Supple, no JVD.] RESPIRATORY EFFORT: Mildly increased] LUNGS: [Bilateral bases diminished, no wheezes rhonchi or crackles CARDIOVASCULAR[regular S1-S2, no edema] GI: [Abdomen soft, nontender, distended, positive bowel sounds, no guarding, no rigidity.] PSYCH: [Alert and oriented -3, mood and affect normal.] NEURO: No focal deficits Microbiology 08/14/16 15:00 Urine,Catheterized Urine Culture - Final - Labs CBC & Chem 7: 08/16/16 07:34 08/16/16 07:34 Labs: Abnormal Lab Results - Last 24 Hours (Table) 08/16/16 08/16/16 Range/Units 07:34 07:34 WBC 16.8 H (3.8-10.6) k/uL RBC 3.68 L (4.30-5.90) m/uL Hgb 11.5 L (13.0-17.5) gm/dL Hct 35.1 L (39.0-53.0) % Neutrophils # 14.5 H (1.3-7.7) k/uL Lymphocytes # 0.7 L (1.0-4.8) k/uL Monocytes # 1.1 H (0-1.0) k/uL Sodium 132 L (137-145) mmol/L Chloride 95 L (98-107) mmol/L BUN 28 H (9-20) mg/dL Glucose 123 H (74-99) mg/dL Microbiology - Last 24 Hours (Table) 08/14/16 15:00 Urine Culture - Final Urine,Catheterized Assessment and Plan Plan: 1. Status post laminectomy, decompression, wide foraminotomy with partial facetectomy L 3-4, L4-5 and L5-S1 for spondylolisthesis, severe spinal stenosis with degenerative joint disease 2. Change in mental status, possible acute metabolic encephalopathy, suspect medication induced, improved. 3. Leukocytosis]. 4. Atelectasis 5. Anemia]. 6. [Mild thrombocytopenia. 7. [Hypertension]. 8. Hyperlipidemia 10. Gastroesophageal reflux disease 11. Asbestosis 12. Motion sickness 13. Remote history of nicotine dependence, quit in 1982. 14. Constipation 15. Tachycardia, mild, pain related 16. Hyponatremia, suspect SIADH secondary to pain Plan: Continue on current medication regime , nebulized bronchodilators, Symbicort, monitoring and symptomatic treatment. Aggressive pulmonary toileting with IS knee instructed/reinforced. Pain management as per surgery. Refer to new orders regarding constipation. Close monitoring of electrolytes with repeat labs ordered for a.m. Further recommendations to follow. The impression and plan of care has been dictated as directed. : I performed a H&P examination of this patient and discussed the same with the dictator. I agree with the dictator's note. Any additional findings/opinions/ etc. will be noted.
[2016-08-16 17:55] VITALS: TEMP 98.3
[2016-08-16 18:59] LABS: Glucose,Whole Blood 142 mg/dL (75-99)
[2016-08-16] MEDS ORDERED: SODIUM CHLORIDE 0.9% 99 ML with VASOPRESSIN 20 UNIT IV SCH ×2 (20:30)
[2016-08-16] MEDS ORDERED: NOREPINEPHRIN 4 MG-0.9% NS PMX 4 MG/250 ML ML IV SCH (20:45)
[2016-08-16 20:46] LABS: CH 31.2; CHCM 31.8; HCT 27.2 % (39.0-53.0); HDW 2.47; Immature Gran Flag Slight; MCH 31.4 pg (25.0-35.0); MCHC 31.9 g/dL (31.0-37.0); MCV 98.5 fL (80.0-100.0); Mean Platelet Volume 8.2; RBC 2.76 m/uL (4.30-5.90); RDW 13.1 % (11.5-15.5); WBC 11.6 k/uL (3.8-10.6); WBC (Perox) 11.47
[2016-08-16 20:50] LABS: HGB 8.7 gm/dL (13.0-17.5)
[2016-08-16 20:53] LABS: ALT 191 U/L (21-72); AST 302 U/L (17-59); Alkaline Phosphatase 61 U/L (38-126); Anion Gap 13 mmol/L; Blood Urea Nitrogen 30 mg/dL (9-20); Calcium 7.7 mg/dL (8.4-10.2); Carbon Dioxide 17 mmol/L (22-30); Chloride 99 mmol/L (98-107); Glucose 168 mg/dL (74-99); Non-African American GFR(MDRD) >60 (>60 ml/min/1.73 sqM); Potassium 5.6 mmol/L (3.5-5.1); Sodium 129 mmol/L (137-145); Total Bilirubin 2.4 mg/dL (0.2-1.3); Total Protein 4.7 g/dL (6.3-8.2)
[2016-08-16 20:54] LABS: INR 1.1 (<1.1)
--- NOTE | 2016-08-16 20:57 | XR ---
EXAMINATION TYPE: XR abdomen 1V DATE OF EXAM: 08/16/2016 8:50 PM COMPARISON: NONE HISTORY: Abdominal distention TECHNIQUE: 2 views FINDINGS: There are multiple dilated fluid and gas-filled loops of small bowel in the mid abdomen. Th ere is no sign of free air. There is also gas distention of the large bowel down to the rectum. There is nasogastric tube noted. IMPRESSION: Distended large and small bowel loops with gas most likely related to generalized ileus. No free air. Mechanical obstruction cannot BE entirely excluded.
--- NOTE | 2016-08-16 20:58 | XR ---
EXAMINATION TYPE: XR chest 1V DATE OF EXAM: 08/16/2016 8:50 PM COMPARISON: 08/15/2016 HISTORY: Line placement TECHNIQUE: Single frontal view of the chest is obtained. FINDINGS: There is an endotracheal tube that has tip 2 cm from the atiya. There is mild pulmonary c ongestion. There are chest leads. There is a nasogastric tube that appears in good position. IMPRESSION: There is some pulmonary vascular congestion consistent with heart failure that is compar ed to yesterday. Endotracheal tube is low and could be pulled back 2 cm.
[2016-08-16 21:00] LABS: ABG Base Excess -11.9 mmol/L; ABG HCO3 17 mmol/L (21-25); ABG PCO2 60 mmHg (35-45); ABG PH 7.07 (7.35-7.45); ABG PO2 232 mmHg (83-108); ABG TCO2 18 mmol/L (19-24)
[2016-08-16 21:07] LABS: Add Differential Manual Differential
[2016-08-16 21:09] LABS: Manual Review Performed; Nucleated Red Blood Cells 0 /100 WBC (0-0); RBC Morphology Normal; Total Cells Counted 100
--- NOTE | 2016-08-16 21:13 | P.PN ---
Progress Note - Text I was called this evening at 6:47 PM with the nurse notifying me that the patient was actively involved in a CODE BLUE. I was able to arrive at the hospital before 7:00. Upon arrival to the floor I was able to discuss the case with Dr. Rabago from the emergency room who is running the code. By that point the patient had been intubated. When I arrived to the floor the patient was intubated and they had recovered a pulse blood pressure. Apparently they had done CPR for approximately 15 minutes with the patient in asystole over that time. The patient had seemed to be making some progress to the day today. His daughter had left his room less than an hour before the code. He had been seen by the nursing staff as well shortly before the code. Apparently had sudden onset of asystole and the CODE BLUE was called. They have quick response and were able to intubate him. Apparently he did have aspiration at the time of his intubation and while he was unconscious. He was able to regain a blood pressure up to 120/70 with a pulse around 118. His blood pressure was diminishing steadily and he was started on levothyroid at bedside with Dr. Rabago. He had response to the levothyroid and his pressure and was able to be transferred up to intensive care unit. The cause of the asystole is still undetermined. He is on 40 mics of levothyroid and is maintaining a blood pressure currently around 110/70. He is on full vent support 100%. He is nonresponsive. He is not making any purposeful movements. His abdomen remained distended. He has an OG tube intact which is putting out some brownish green fluid. I have reviewed the case and discussed case with Dr. Rabago and Dr. Doyle in intensive care unit. He will continue his bent support and we will fed with close monitoring. He is undergoing further testing and evaluation close monitoring. I spent a great deal of time with the family the and daughter were here this evening after they were alerted of his change in status. I answered all their questions to the best my ability and language that they can understand. They understand that his status is quite grim and uncertain at this point. We will continue to follow them closely.
[2016-08-16] MEDS ORDERED: PROPOFOL 500 MG in EMPTY BAG 1 BAG IV SCH (21:15)
[2016-08-16] MEDS ORDERED: PANTOPRAZOLE 40 MG/10 ML VIAL IVP SCH (21:15)
[2016-08-16] MEDS ORDERED: SODIUM CHLORIDE 0.9% 1,000 ML IV SCH (21:30)
[2016-08-16 21:57] LABS: Creatine Kinase MB 18.5 ng/mL (0.0-2.4); Troponin I 0.142 ng/mL (0.000-0.034)
[2016-08-16 22:06] LABS: ABG Base Excess -9.1 mmol/L; ABG HCO3 18 mmol/L (21-25); ABG PCO2 46 mmHg (35-45); ABG PO2 169 mmHg (83-108); ABG TCO2 19 mmol/L (19-24)
[2016-08-16] MEDS ORDERED: DEXTROSE 5% IN WATER 1,000 ML with SODIUM BICARB (1 MEQ/ML) 150 ML IV SCH ×2 (22:15→23:00)
[2016-08-16] MEDS ORDERED: FUROSEMIDE 10 MG/ML 4 ML VIAL IV STA (22:22)
--- NOTE | 2016-08-16 22:25 | P.CNPUL ---
History of Present Illness Consult date: 08/16/16 Requesting physician: Shree Morales Reason for consult: other (Status post cardiac arrest) Chief complaint: Status post cardiac arrest History of present illness: This is a 70-year-old white male with history of multiple medical problems including hypertension, degenerative joint disease, underlying COPD, patient was admitted on 08/13/2016, and he underwent laminectomy and decompression with a wide bilateral foraminotomy and partial facetectomy for spondylosis and severe spinal stenosis. Patient has been on the medical floor since his surgery on last Saturday, and the main issue over the last couple of days has been related to abdominal distention and constipation. At times he had episodes of confusion, hallucination, seeing things on the ceiling, however the symptoms have subsided this a.m. X-rays of the abdomen were done for abdominal distention, and showed distant large and small bowel loops and gas most likely related to generalized ileus. No free air was noted. Mechanical obstruction cannot be entirely ruled out. At any rate, the sutures were being addressed by the orthopedic service and by the medical service on the case. Earlier this evening, the patient had a sudden cardiac arrest and he went into asystole. JETT SOLOMON was called and the team arrived to resuscitate the patient. He was in asystole, patient was coded for almost 15 minutes until the pulse was recovered. Patient remained hypotensive, placed on norepinephrine presently on 30 g of norepinephrine to maintain an adequate blood pressure. Patient was transferred to the ICU after the code, and I was asked to see him on consultation. I arrived to the ICU and discussed his condition with Dr. Morales who was admitted bedside. Chest x-ray abdominal films labs were all reviewed. Initial ABG post intubation showed a pO2 of 232 pCO2 of 60 pH of 7.07. Follow- up ABG showed a pO2 of 169 pCO2 of 46 pH of 7.20 and this was done after vent settings changes and increasing rate to 22. Patient remained acidotic with significant metabolic acidosis, hence I ordered sodium bicarb, and a bicarb drip was ordered. Potassium was noted to be a bit elevated at 5.6. Lactic acid was noted to be 9.8 hence I was a bit concerned about the possibility of ischemic bowel. Surgical consultation was initiated to Dr. sabillon, however at this point clearly the patient is not a surgical candidate based on his recent cardiac arrest. Sodium bicarb drip will be initiated, bronchodilators were started, broad-spectrum antibiotics coverage utilizing the Merrem was ordered cardiology consultation was initiated and clearly the overall picture does not seem to be very promising. Patient may have also sustained a bit of anoxic brain injury considering the cold went on for about 15 minutes. Review of Systems ROS unobtainable: due to endotracheal tube Past Medical History Past Medical History: GERD/Reflux, Hyperlipidemia, Hypertension, Osteoarthritis (OA), Pneumonia Additional Past Medical History / Comment(s): Hx. heart murmur,States HX OF elevated bilirubin level. CHEST XRAYS HAVE SHOWN FOR YEARS TO CORRELATE FOR ASBESTOS, PAST HX OF ULCERATED ESOPHAGUS. HAD RADIATION AT AGE 13 R/T REGROWTH OF ADNOIDS, NOT CA. History of Any Multi-Drug Resistant Organisms: None Reported Past Surgical History: Adenoidectomy, Appendectomy, Orthopedic Surgery, Tonsillectomy Additional Past Surgical History / Comment(s): Carpal tunnel bilaterally. R Knee scope, hydrocele. Hx. of throat problems as a pre-teen. "adnoids grew back after sx and were scraped, and then had radiation" Past Anesthesia/Blood Transfusion Reactions: Motion Sickness Past Psychological History: No Psychological Hx Reported Smoking Status: Former smoker Past Alcohol Use History: Occasional Additional Past Alcohol Use History / Comment(s): Quit smoking 1982. Started as a teenager. smoked 1ppd Past Drug Use History: None Reported - Past Family History Father Family Medical History: CVA/TIA Mother Family Medical History: Cancer Additional Family Medical History / Comment(s): lung, pancreas Medications and Allergies Home Medications Medication Instructions Recorded Confirmed Type Aspirin 81 mg PO DAILY 05/19/14 08/13/16 History Atorvastatin [Lipitor] 10 mg PO DAILY 05/19/14 08/13/16 History Lisinopril [Prinivil] 20 mg PO DAILY 05/19/14 08/13/16 History Focal Vitamin 1 tab PO DAILY 01/23/16 08/13/16 History Multivitamin [Men's Multi-Vitamin] 1 tab PO DAILY 01/23/16 08/13/16 History Ranitidine HCl 150 mg PO DAILY PRN 01/23/16 08/13/16 History Vitamin E (Dl,Tocopheryl Acet) 400 unit PO DAILY 01/23/16 08/13/16 History [Vitamin E] Naproxen Sodium [Aleve] 220 mg PO Q12HR PRN 04/12/16 08/13/16 History Acetaminophen [Tylenol] 650 mg PO DIRECTED PRN 05/14/16 08/13/16 History traMADol HCL [Ultram] 50 mg PO BID PRN 05/14/16 08/13/16 History Allergies Allergy/AdvReac Type Severity Reaction Status Date / Time gabapentin [From Neurontin] Allergy Intermediate Rash/Hives Verified 06/18/16 14 :04 Penicillins Allergy Rash/Hives Verified 05/14/16 12:48 Sulfa (Sulfonamide Allergy Rash/Hives Verified 05/14/16 12:48 Antibiotics) Physical Exam Vitals: Vital Signs Temp Pulse Pulse Resp BP Pulse Ox 08/16/16 17:54 98.3 F 116 H 20 143/87 96 08/16/16 17:37 104 H 08/16/16 17:23 104 H 08/16/16 15:00 98.1 F 122 H 24 160/81 95 08/16/16 12:59 108 H 08/16/16 12:46 108 H 08/16/16 09:04 116 H 08/16/16 08:48 116 H 95 08/16/16 08:00 20 08/16/16 07:00 98.3 F 109 H 20 161/89 98 08/16/16 02:20 112 H 08/16/16 02:08 116 H Intake and Output 08/16/16 08/16/16 08/16/16 06:59 14:59 22:59 Intake Total 1611.2 600 270 Output Total 373 Balance 1611.2 600 -103 Intake: IV 600 600 0.9% NaCl with KCl 20 Meq 300 /l 1,000 ml @ 75 mls/hr IV .BY DURATION JERED Rx#: [id number] Mvi, Adult No.4 with Vit 300 600 K 10 ml Thiamine 100 mg Folic Acid 1 mg In 0.9% NaCl with KCl 20 Meq/l 1, 000 ml @ 75 mls/hr IV .BY DURATION JERED Rx#: [id number] Intake, IV Titration 1011.2 Amount Mvi, Adult No.4 with Vit 1011.2 K 10 ml Thiamine 100 mg Folic Acid 1 mg In 0.9% NaCl with KCl 20 Meq/l 1, 000 ml @ 75 mls/hr IV .BY DURATION JERED Rx#: [id number] Oral 270 Output: Urine 150 Post Void Residual 223 Other: Voiding Method Urinal Urinal Urinal Physical Exam: Revealed a 70-year-old white male on mechanical ventilation, intubated, unresponsive to painful stimuli, pupils are reactive to light, endotracheal tube is intact. HEENT:[Neck is supple.] [No neck masses.] [No thyromegaly.] [No JVD.]. Moist mucous membranes, endotracheal tube is intact. Chest: [Diffuse rhonchi and wheezes noted bilaterally] Cardiac Exam: [Normal S1 and S2, no S3 gallop, 2/6 systolic murmur throughout the precordium Abdomen: [Distended, nontender, no megaly, no rebound, no guarding, active bowel sounds Extremities: [No clubbing, no edema, no cyanosis.] Neurological Exam: Patient is unresponsive to any painful stimuli. However he received medications earlier including narcotics and muscle paralytic agents for intubation. Results - Laboratory Findings CBC and BMP: 08/16/16 20:15 08/16/16 20:15 ABG ABG pH 7.07 (7.35-7.45) L* 08/16/16 20:00 ABG pCO2 60 mmHg (35-45) H 08/16/16 20:00 ABG pO2 232 mmHg (83-108) H 08/16/16 20:00 ABG O2 Saturation 100.0 % (94-97) H 08/16/16 20:00 PT/INR, D-dimer PT 11.0 sec (9.0-12.0) 08/16/16 20:15 INR 1.1 (<1.1) 08/16/16 20:15 Abnormal lab findings: Abnormal Labs 08/13/16 08/13/16 08/13/16 18:17 19:24 19:30 WBC 12.5 H RBC 3.81 L Hgb 12.0 L D Hct 36.8 L Plt Count 148 L Neutrophils # 10.1 H Neutrophils # (Manual) Lymphocytes # Monocytes # APTT ABG pH ABG pCO2 ABG pO2 ABG HCO3 ABG Total CO2 ABG O2 Saturation Sodium Potassium Chloride 108 H Carbon Dioxide BUN 22 H Glucose 122 H POC Glucose (mg/dL) Plasma Lactic Acid Sky Calcium Total Bilirubin 2.0 H AST ALT Total Creatine Kinase CK-MB (CK-2) Troponin I Total Protein 5.0 L Albumin 3.2 L Urine Protein 1+ H Urine Blood Moderate H Ur Leukocyte Esterase Moderate H Urine RBC 35 H Urine WBC 28 H Urine WBC Clumps Rare H Urine Bacteria Rare H Hyaline Casts 6 H Urine Mucus Rare H Urine Yeast (Budding) Occasional H 08/14/16 08/14/16 08/15/16 07:48 07:48 07:51 WBC 15.7 H RBC 3.94 L 3.69 L Hgb 12.5 L 11.9 L Hct 37.7 L 34.0 L Plt Count 135 L 115 L Neutrophils # 8.2 H 13.7 H Neutrophils # (Manual) Lymphocytes # 0.7 L 0.6 L Monocytes # APTT ABG pH ABG pCO2 ABG pO2 ABG HCO3 ABG Total CO2 ABG O2 Saturation Sodium Potassium Chloride Carbon Dioxide BUN 23 H Glucose 118 H POC Glucose (mg/dL) Plasma Lactic Acid Sky Calcium Total Bilirubin AST ALT Total Creatine Kinase CK-MB (CK-2) Troponin I Total Protein Albumin Urine Protein Urine Blood Ur Leukocyte Esterase Urine RBC Urine WBC Urine WBC Clumps Urine Bacteria Hyaline Casts Urine Mucus Urine Yeast (Budding) 08/16/16 08/16/16 08/16/16 07:34 07:34 18:49 WBC 16.8 H RBC 3.68 L Hgb 11.5 L Hct 35.1 L Plt Count Neutrophils # 14.5 H Neutrophils # (Manual) Lymphocytes # 0.7 L Monocytes # 1.1 H APTT ABG pH ABG pCO2 ABG pO2 ABG HCO3 ABG Total CO2 ABG O2 Saturation Sodium 132 L Potassium Chloride 95 L Carbon Dioxide BUN 28 H Glucose 123 H POC Glucose (mg/dL) 142 H Plasma Lactic Acid Sky Calcium Total Bilirubin AST ALT Total Creatine Kinase CK-MB (CK-2) Troponin I Total Protein Albumin Urine Protein Urine Blood Ur Leukocyte Esterase Urine RBC Urine WBC Urine WBC Clumps Urine Bacteria Hyaline Casts Urine Mucus Urine Yeast (Budding) 08/16/16 08/16/16 08/16/16 20:00 20:15 20:15 WBC 11.6 H RBC 2.76 L Hgb 8.7 L D Hct 27.2 L Plt Count 137 L Neutrophils # Neutrophils # (Manual) 10.2 H Lymphocytes # Monocytes # APTT 38.0 H ABG pH 7.07 L* ABG pCO2 60 H ABG pO2 232 H ABG HCO3 17 L ABG Total CO2 18 L ABG O2 Saturation 100.0 H Sodium Potassium Chloride Carbon Dioxide BUN Glucose POC Glucose (mg/dL) Plasma Lactic Acid Sky Calcium Total Bilirubin AST ALT Total Creatine Kinase CK-MB (CK-2) Troponin I Total Protein Albumin Urine Protein Urine Blood Ur Leukocyte Esterase Urine RBC Urine WBC Urine WBC Clumps Urine Bacteria Hyaline Casts Urine Mucus Urine Yeast (Budding) 08/16/16 08/16/16 08/16/16 20:15 20:15 20:15 WBC RBC Hgb Hct Plt Count Neutrophils # Neutrophils # (Manual) Lymphocytes # Monocytes # APTT ABG pH ABG pCO2 ABG pO2 ABG HCO3 ABG Total CO2 ABG O2 Saturation Sodium 129 L Potassium 5.6 H Chloride Carbon Dioxide 17 L BUN 30 H Glucose 168 H POC Glucose (mg/dL) Plasma Lactic Acid Sky 9.8 H* Calcium 7.7 L Total Bilirubin 2.4 H AST 302 H ALT 191 H Total Creatine Kinase 1256 H CK-MB (CK-2) 18.5 H* Troponin I 0.142 H* Total Protein 4.7 L Albumin 2.5 L Urine Protein Urine Blood Ur Leukocyte Esterase Urine RBC Urine WBC Urine WBC Clumps Urine Bacteria Hyaline Casts Urine Mucus Urine Yeast (Budding) - Diagnostic Findings Chest x-ray: image reviewed (Endotracheal tube was sitting just above the atiya , hence it will be adjusted and will be pulled about to see a above the atiya evidence of interstitial edema noted small left pleural effusion was also noted , possibility of aspiration pneumonia is not entirely ruled out.) Assessment and Plan Plan: Impression: 1 acute cardiac arrest and respiratory failure with prolonged down time, about 15 minutes. 2 abdominal distention, ileus, ischemic bowel is not entirely ruled out. 3 acute lactic acidosis possibly secondary to hypoperfusion, sepsis, and possible bowel ischemia. 4 acute pulmonary edema secondary to cardiac arrest 5 possible aspiration pneumonia 6 acute exacerbation of COPD 7 possible anoxic brain injury 8 status post laminectomy and decompression 9 recent episode of confusion and hallucination, metabolic encephalopathy or possible hypercapnia related. 10 history of asbestos exposure 11 history of hypertension 12 postoperative anemia Recommendation: Continue present supportive care measures, patient will remain on mechanical ventilation for now, continue updrafts, empiric antibiotics, general surgery consultation to evaluate his abdomen, cardiac consultation, possible neurologic consultation if the patient doesn't show any signs of neurologic recovery in the next 24 hours. Prognosis is definitely poor and guarded, I discussed his condition with Dr. Wolfe at bedside, and he in turn discussed the overall picture with the family. Again prognosis is definitely poor and guarded. Time with Patient: Greater than 30
[2016-08-16] MEDS ORDERED: IOHEXOL 350 MG/ML 25 ML BOTTLE (ORAL USE) PO PRN (22:38)
[2016-08-16] MEDS ORDERED: RX INFO: IV CONTRAST WAS GIVEN 1 EACH MISC MISCELLANE PRN (22:38)
[2016-08-16 23:07] VITALS: BP 70/43; RESP 27
[2016-08-17] MEDS ORDERED: methylPREDNISolone SOD SUCCI 125 MG/2 ML VIAL IV SCH
[2016-08-17 05:40] VITALS: PULSE 116
[2016-08-17] MEDS ORDERED: BUDESONIDE 1 MG/2 ML NEBU INHALATION SCH (08:00)
[2016-08-17] MEDS ORDERED: MEROPENEM 1 GM in SODIUM CHLORIDE 0.9% 100 ML IVPB SCH ×5 (09:00)
--- NOTE | 2016-08-17 10:33 | P.PN ---
Progress Note - Text Delayed entry: Date of service 08/16/2016 Dictated for . Called in to order abdominal CT, notified patient found unresponsive, code initiated, orders given. The impression and plan of care has been dictated as directed. : I performed a H&P examination of this patient and discussed the same with the dictator. I agree with the dictator's note. Any additional findings/opinions/ etc. will be noted.
[2016-08-17] MEDS ORDERED: LEVOFLOXACIN 500 MG TAB PO SCH (12:00)
== END 2016-08-17 00:25 | disposition expired | DRG 459 ==
LOC: 2ORMAIN 11:08 → 5ONC 17:36 → 6ICU 08-16 19:24
PROVIDERS: ADMIT Orthopaedic Surgery Orthopaedic Surgery of the Spine; ATTEND Orthopaedic Surgery Orthopaedic Surgery of the Spine
PROC: 0SG30AJ Fusion of Lumbosacral Joint with Interbody Fusion Device, Posterior Approach, Anterior Column, Open Approach (ICD-10-PCS; principal; 2016-08-13 13:00)
PROC: 0SG1071 Fusion of 2 or more Lumbar Vertebral Joints with Autologous Tissue Substitute, Posterior Approach, Posterior Column, Open Approach (ICD-10-PCS; principal; 2016-08-13 13:00)
PROC: 0SG10AJ Fusion of 2 or more Lumbar Vertebral Joints with Interbody Fusion Device, Posterior Approach, Anterior Column, Open Approach (ICD-10-PCS; principal; 2016-08-13 13:00)
PROC: 0ST20ZZ Resection of Lumbar Vertebral Disc, Open Approach (ICD-10-PCS; principal; 2016-08-13 13:00)
PROC: 0ST40ZZ Resection of Lumbosacral Disc, Open Approach (ICD-10-PCS; principal; 2016-08-13 13:00)
PROC: 4A11X4G Monitoring of Peripheral Nervous Electrical Activity, Intraoperative, External Approach (ICD-10-PCS; principal; 2016-08-13 13:00)
PROC: 0SG3071 Fusion of Lumbosacral Joint with Autologous Tissue Substitute, Posterior Approach, Posterior Column, Open Approach (ICD-10-PCS; principal; 2016-08-13 13:00)
PROC: 07DR3ZZ Extraction of Iliac Bone Marrow, Percutaneous Approach (ICD-10-PCS; principal; 2016-08-13 13:00)
DX: M47.26 Other spondylosis with radiculopathy, lumbar region (principal); J81.0 Acute pulmonary edema; J96.90 Respiratory failure, unspecified, unspecified whether with hypoxia or hypercapnia; G93.41 Metabolic encephalopathy; E87.2 Acidosis; K55.9 Vascular disorder of intestine, unspecified; K56.7 Ileus, unspecified; J44.1 Chronic obstructive pulmonary disease with (acute) exacerbation; J98.11 Atelectasis; N39.0 Urinary tract infection, site not specified; D69.6 Thrombocytopenia, unspecified; D64.9 Anemia, unspecified; I73.9 Peripheral vascular disease, unspecified; M48.06 Spinal stenosis, lumbar region; M43.16 Spondylolisthesis, lumbar region; E78.5 Hyperlipidemia, unspecified; I10 Essential (primary) hypertension; I46.9 Cardiac arrest, cause unspecified; K21.9 Gastro-esophageal reflux disease without esophagitis; M51.16 Intervertebral disc disorders with radiculopathy, lumbar region; M51.37 Other intervertebral disc degeneration, lumbosacral region; Z77.090 Contact with and (suspected) exposure to asbestos; Z79.82 Long term (current) use of aspirin; Z79.899 Other long term (current) drug therapy; Z80.0 Family history of malignant neoplasm of digestive organs; Z87.01 Personal history of pneumonia (recurrent); Z87.891 Personal history of nicotine dependence; Z88.0 Allergy status to penicillin; Z88.2 Allergy status to sulfonamides
CPT/HCPCS: 36600; 71010; 72020; 72100; 74000; 80048; 80053; 81001; 82140; 82550; 82553; 82805; 83605; 83735; 84484; 85025; 85610; 85730; 86850; 86891; 86900; 86901; 87070; 87086; 87205; 94002; 94640; 94760